=== PATIENT | female | born 1960 | race Caucasian/White ===

== ENCOUNTER 2019-08-22 19:14 | Inpatient (IN) | payer OTHER ==
[2019-08-22 20:44] VITALS: BMI 29.8
--- NOTE | 2019-08-22 21:51 | P.HP ---
Certification for Inpatient Patient admitted to: Observation With expected LOS: <2 Midnights Practitioner: I am a practitioner with admitting privileges, knowledge of patient current condition, hospital course, and medical plan of care. Services: Services provided to patient in accordance with Admission requirements found in Title 42 Section 412.3 of the Code of Federal Regulations Patient History Date of Service: 08/22/19 Reason for admission: Abdominal pain History of Present Illness: 59-year-old woman with a history of anxiety and depression, fibromyalgia, posttraumatic stress disorder was transferred from [facility] with a diagnosis of acute diverticulitis. Patient reports 4 days of abdominal pain. Pain described as colicky, no aggravating or relieving factors, associated with chills, no recorded fever. Patient denied any nausea vomiting or diarrhea. She reports frequent constipation. She rated her pain at 5/10 during my examination. Patient is admitted for further management. Allergies codeine Adverse Reaction (Verified 08/22/19 21:17) Nausea/Vomiting - Past Medical/Surgical History -: Fibromyalgia -: Anxiety -: Depression -: Hysterectomy -: Tonsillectomy - Family History Family History: Reviewed- Non-Contributory - Social History Smoking Status: Current every day smoker Alcohol use: No CD- Drugs: No Place of Residence: Home Review of Systems Other: Except as documented, all other systems reviewed and negative. Physical Examination - Vital Signs Temperature: 97.9 F Blood Pressure: 126/76 Pulse: 111 Respirations: 16 Pulse Ox (%): 98 - Physical Exam General: Alert, In no apparent distress, Oriented x3 HEENT: PERRLA, Mucous membr. moist/pink, Sclerae nonicteric Neck: Supple, JVD not distended Respiratory: Clear to auscultation bilaterally, Normal air movement Cardiovascular: No edema, Normal pulses, Regular rate/rhythm, Normal S1 S2 Capillary refill: <2 Seconds Gastrointestinal: Normal bowel sounds, Non-distended, No rebound, No guarding, Tenderness (Left lower quadrant) Musculoskeletal: No swelling, No erythema Integumentary: No rashes Neurological: Normal speech, Normal strength at 5/5 x4 extr Assessment and Plan - Problems (Diagnosis) (1) Acute diverticulitis Current Visit: Yes Status: Acute - Plan Admit to the medical floor. Start IV Cipro and Flagyl Monitor CBC Clear liquid diet. Consult general surgery. Collect, validate and reconcile home medications. - Advance Directives Does patient have a Living Will: No Does patient have a Durable POA for Healthcare: No
[2019-08-22] MEDS ORDERED: ONDANSETRON 4 MG/2 ML VIAL IV PRN (22:52)
[2019-08-22] MEDS: NA CHLORIDE 0.9% 1,000 ML IV SCH (23:50)
[2019-08-22] MEDS: FENTANYL CITR 100 MCG/2 ML IV PRN (23:50)
[2019-08-23] MEDS: METRONIDAZOLE 500mg IVPB 500 MG/100 ML BAG IV SCH ×3 (00:01→17:03)
[2019-08-23] MEDS: HEPARIN 5000 UNIT/ML 1 ML VIAL SQ SCH ×3 (00:01→17:02)
[2019-08-23] MEDS: FENTANYL CITR 100 MCG/2 ML IV PRN ×4 (04:13→21:52)
[2019-08-23 06:19] LABS: Absolute Lymphocytes (CBC) 1.6 K/uL (0.7-4.9); Basophils % 1.1 % (0-1.3); Hematocrit 36.4 % (36.0-45.0); MPV 9.4 fL (7.6-11.3); RBC Red Blood Cell Count 4.02 M/uL (3.86-4.86)
[2019-08-23 06:20] LABS: Protime INR 1.23
[2019-08-23 06:31] LABS: ALT/SGPT 28 U/L (12-78); AST/SGOT 17 U/L (15-37); Albumin 2.7 g/dL (3.4-5.0); Alkaline Phosphatase 103 U/L (45-117); BUN Blood Urea Nitrogen 14 mg/dL (7-18); Bicarbonate 27 mmol/L (21-32); Bilirubin Total 0.7 mg/dL (0.2-1.0); Glucose Level 74 mg/dL (74-106); Phosphorus 3.2 mg/dL (2.5-4.9); Potassium 3.8 mmol/L (3.5-5.1); Protein, Total 6.6 g/dL (6.4-8.2); Sodium Level 143 mmol/L (136-145)
[2019-08-23] MEDS: ACETAMINOPHEN 500 MG TAB PO PRN (07:05)
[2019-08-23] MEDS: NA CHLORIDE 0.9% 1,000 ML IV SCH ×3 (09:00→21:51)
[2019-08-23] MEDS ORDERED: POTASSIUM CL SA 10 MEQ TAB PO ONE (09:00)
[2019-08-23] MEDS: CIPROFLOXACIN 400mg IV 400 MG/200 ML BAG IV SCH ×2 (09:14→21:51)
--- NOTE | 2019-08-23 10:04 | PN ---
Date of Progress Note: 08/23/2019 History Of Present Illness: Patient seen and examined. Chart reviewed and case discussed with RN. Patient states that her pain is still present. Has been n.p.o. Medications: List reviewed. Physical Examination: Vital Signs: Temperature 96.3, heart rate 86, blood pressure 101/62, respirations 16, O2 95% on room air. General: Awake, alert, oriented x3, in some mild distress. Ill-appearing female, obese. CV: S1, S2. Regular rate and rhythm. Respiratory: Moving air well bilaterally. No wheezing or stridor. Gastrointestinal: Abdomen is soft. Mild tenderness to palpation in the left upper quadrant. Bowel sounds positive. Extremities: No clubbing, cyanosis, or edema. Neurologic: Nonfocal. Cranial nerves 2 through 12 intact grossly. Speech is normal. Laboratory Data: Sodium 143, potassium 3.8, chloride 111, CO2 of 27, BUN 14, creatinine 0.57, glucos e 74, calcium 8.2, phosphorus 3.2, magnesium 2. AST 17, ALT 28, albumin 2.7. INR 1.23. WBC 10.7, H and H 12.2 and 36.4, platelets 218, neutrophils 76%. Assessment: A 59-year-old female with: 1.Acute diverticulitis. We will continue with intravenous antibiotics, Cipro and Flagyl. Patient i s on clear liquids. Dr. Harper and GI, Dr. Pollack have been consulted. Patient will need outpatient colonoscopy once an inflammatory stage is resolved. 2.Fibromyalgia, stable. 3.Generalized anxiety disorder, stable. 4.Major depressive disorder, on selective serotonin reuptake inhibitor, stable. 5.Deep venous thrombosis prophylaxis. The patient is on heparin. Plan: 1.Continue IV fluids, IV antibiotics, and antiemetics. Slowly advance diet as tolerated. We will f ollow up with GI recommendations. Likely discharge in the next 24 to 48 hours depending on clinical response. SA/MODL Voice ID: [id number] Report ID: [id number]
--- NOTE | 2019-08-23 14:18 | CON ---
Date of Consultation: 08/22/2019 Reason For Consultation: Abdominal pain. History Of Present Illness: The patient is a 59-year-old female, who was transferred from [facility] with acute onset of left lower quadrant abdominal pain for about 4 days. Pain has not changed in its ginna lity and nature. No nausea or vomiting. No diarrhea. She does have constipation. No blood in her stool now, but she has a history of bright red blood in the recent past. She has not had a colonosco py in 20 years. No sore throat, runny nose, cough, headaches, or dizziness. No dysuria or hematuria. No chest pain. No fever or chills. Review of Systems: Otherwise unremarkable. Past Medical History: Significant for fibromyalgia, anxiety, depression. Past Surgical History: Hysterectomy and tonsillectomy. Allergies: INCLUDE CODEINE. SHE DOES SMOKE. SHE DENIES DRINKING. Family History: Noncontributory. Physical Examination: Vital Signs: Currently are within normal limits and she is afebrile. General: She is awake, alert, and oriented x3. Head and Neck: Cranial nerves 2 through 12 are grossly within normal limits. No neck masses. No JV D. Throat clear. Neck is supple. Chest: Clear. Heart: S1 and S2. Abdomen: Soft, nondistended. Positive bowel sounds. Positive left lower quadrant tenderness. No r ebound, rigidity, or guarding. Extremities: Adequately perfused. Nontender. Neuro: Nonfocal. Laboratory Data: White count is 10.7 this morning with a left shift. INR is 1.23. Chemistry reviewe d. Albumin is 2.7. CT of the abdomen and pelvis done at [facility] prior to transfer over here, showed [place] sigmoid diverticulitis, uncomplicated. Assessment: Acute sigmoid diverticulitis. Recommendation: IV antibiotics. We will start patient on clear liquids. Dietary consultation for d ietary modification. She will need to be discharged home on 2 weeks of oral antibiotics followed by evaluation by GI service for a colonoscopy in 4-6 weeks after which she would need determination whet her she needs a resection at this time or not. We will follow this patient while in the hospital. THANH/ZACH Voice ID: [id number] Report ID: [id number]
[2019-08-23 20:33] LABS: Urine Appearance CLEAR; Urine Bilirubin NEGATIVE (NEG); Urine Blood NEGATIVE (NEG); Urine Color YELLOW; Urine Glucose NEGATIVE (NEG); Urine Protein NEGATIVE (NEG); Urine Specific Gravity <=1.005 (1.005-1.030); Urine pH 5.5 (5.0-7.0)
[2019-08-23 20:34] LABS: Urine Microscopic Reflex NO UMIC
[2019-08-24] MEDS: METRONIDAZOLE 500mg IVPB 500 MG/100 ML BAG IV SCH ×3 (01:04→16:00)
[2019-08-24] MEDS: HEPARIN 5000 UNIT/ML 1 ML VIAL SQ SCH ×3 (01:05→16:23)
[2019-08-24] MEDS: FENTANYL CITR 100 MCG/2 ML IV PRN ×2 (02:31→07:05)
[2019-08-24] MEDS: NA CHLORIDE 0.9% 1,000 ML IV SCH ×2 (05:00→14:27)
[2019-08-24 06:33] LABS: BUN Blood Urea Nitrogen 8 mg/dL (7-18); Bicarbonate 26 mmol/L (21-32); Glucose Level 92 mg/dL (74-106); Potassium 3.8 mmol/L (3.5-5.1); Sodium Level 144 mmol/L (136-145)
[2019-08-24] MEDS: CIPROFLOXACIN 400mg IV 400 MG/200 ML BAG IV SCH ×2 (07:57→20:29)
[2019-08-24] MEDS ORDERED: POTASSIUM CL SA 10 MEQ TAB PO ONE (08:00)
[2019-08-24] MEDS ORDERED: LORATADINE 10 MG TAB PO PRN (09:09)
--- NOTE | 2019-08-24 09:38 | PN ---
Date of Progress Note: 08/24/2019 Subjective: Patient is awake, alert, still complaining a little bit of pain in the left lower quadra nt. She has tolerated a full liquid diet. There is no nausea or vomiting and no diarrhea. She does have some constipation. No blood in her stool today. Objective: Vital Signs: Stable. She is currently afebrile. Abdomen: Soft, nondistended. Positive bowel sounds. Minimal tenderness in the left lower quadrant. No rigidity or guarding. No peritonitis. Her white count yesterday was normal with a slight left shift. Assessment: Acute sigmoid diverticulitis. Recommendations: We will advance her diet to a GI soft low-fiber diet and await dietary consultation and she could probably be discharged home tomorrow on oral antibiotics for 2 weeks. Follow up with GI service in about a month for a colonoscopy. THANH/ZACH Voice ID: [id number] Report ID: [id number]
--- NOTE | 2019-08-24 13:10 | PN ---
Date of Progress Note: 08/24/2019 Subjective: Patient seen and examined. Chart reviewed and case discussed with RN and Dr. Harper. Ray renteria is still having significant amount of pain in the left upper quadrant, requiring fentanyl. Medications: List reviewed. Physical Examination: Vital Signs: Temperature 97.5, heart rate 80, blood pressure 140/81, respirations 16, O2 of 97% on r oom air. General: Awake, alert, oriented x3, ill-appearing female. CVS: S1, S2. Regular rate and rhythm. Peripheral pulses present. Respiratory: Moving air well bilaterally. No wheezing or stridor. Gastrointestinal: Abdomen is soft. Tenderness to palpation in the left upper quadrant. No rebound or rigidity. Positive bowel sounds. Extremities: No clubbing, cyanosis, or edema. Neurologic: Nonfocal. Laboratory Data: Sodium 144, potassium 3.8, chloride 111, CO2 of 26, BUN 8, creatinine 0.58, glucose 92, calcium 8.2. Assessment: A 59-year-old female with: 1.Acute diverticulitis. Continue IV antibiotics, Cipro and Flagyl. Patient is tolerating clear liq uids. Appreciate Dr. Harper's input. Patient will need a colonoscopy in the next 4-[address] Sarah leonard. No surgical intervention at this time. 2.Fibromyalgia. Resume home medications. 3.Anxiety disorder. Continue amitriptyline. 4.Major depressive disorder. Continue SSRI. 5.Deep venous thrombosis prophylaxis. Heparin. Plan: Continue IV antiemetics and IV antibiotics. Patient is still requiring fentanyl for pain cont rol. She is not able to be discharged home at this time due to uncontrolled pain. We will repeat CBC and procalcitonin. SA/MODL Voice ID: [id number] Report ID: [id number]
[2019-08-24] MEDS: HYDROCODONE/APAP 7.5/325 MG TAB PO PRN ×2 (14:26→20:27)
[2019-08-24] MEDS ORDERED: FENTANYL CITR 100 MCG/2 ML IV PRN (17:50)
[2019-08-24] MEDS ORDERED: PRAZOSIN HCL 1 MG CAP PO SCH (21:00)
[2019-08-24] MEDS ORDERED: PRAZOSIN HCL 4 MG PO SCH (21:00)
[2019-08-24] MEDS ORDERED: AMITRIPTYLINE 10 MG TAB PO SCH ×2 (21:00)
[2019-08-24 22:55] VITALS: O2SAT 95
[2019-08-25] MEDS: NA CHLORIDE 0.9% 1,000 ML IV SCH ×2 (01:20→11:00)
[2019-08-25] MEDS: METRONIDAZOLE 500mg IVPB 500 MG/100 ML BAG IV SCH ×2 (01:21→07:53)
[2019-08-25] MEDS: HEPARIN 5000 UNIT/ML 1 ML VIAL SQ SCH ×2 (01:21→07:55)
[2019-08-25] MEDS: HYDROCODONE/APAP 7.5/325 MG TAB PO PRN (01:26)
[2019-08-25] MEDS ORDERED: PANTOPRAZOLE 40MG TABLET PO SCH (06:30)
[2019-08-25 06:34] LABS: Absolute Lymphocytes (CBC) 1.7 K/uL (0.7-4.9); Basophils % 0.8 % (0-1.3); Hematocrit 35.7 % (36.0-45.0); MPV 9.1 fL (7.6-11.3); RBC Red Blood Cell Count 3.95 M/uL (3.86-4.86)
[2019-08-25 06:41] LABS: BUN Blood Urea Nitrogen 10 mg/dL (7-18); Bicarbonate 27 mmol/L (21-32); Glucose Level 96 mg/dL (74-106); Potassium 3.8 mmol/L (3.5-5.1); Sodium Level 144 mmol/L (136-145)
[2019-08-25] MEDS ORDERED: POTASSIUM CL SA 10 MEQ TAB PO ONE (07:03)
[2019-08-25] MEDS: CIPROFLOXACIN 400mg IV 400 MG/200 ML BAG IV SCH (07:53)
[2019-08-25] MEDS: ACETAMINOPHEN 500 MG TAB PO PRN (07:53)
[2019-08-25] MEDS ORDERED: ARIPiprazole 5 MG TAB PO SCH (09:00)
[2019-08-25] MEDS ORDERED: HOME MED 1 EA UNK (Aripiprazole [Abilify] 10 MG) PO SCH (09:00)
[2019-08-25] MEDS ORDERED: HOME MED 1 EA UNK (Omeprazole [Prilosec] 40 MG) PO SCH (09:00)
[2019-08-25] MEDS ORDERED: DULOXETINE 30 MG CAP PO SCH (09:00)
[2019-08-25] MEDS ORDERED: HOME MED 1 EA UNK (Duloxetine Hcl [Duloxetine Hcl] 60 MG) PO SCH (09:00)
[2019-08-25 14:39] VITALS: BP 140/95; TEMP 97.5
--- NOTE | 2019-08-26 03:56 | DS ---
Date of Discharge: 08/25/2019 Consultants: Dr. Harper with General Surgery, Dr. Pollack with GI. Admitting Diagnoses: 1.Acute diverticulitis. 2.Anxiety disorder. 3.Fibromyalgia. 4.Major depressive disorder. Discharge Diagnoses: 1.Acute diverticulitis. 2.Fibromyalgia, stable. 3.Generalized anxiety disorder, stable. 4.Major depressive disorder, stable. Hospital Course: Patient is a 59-year-old woman who comes in to the [facility] with abdo donovan pain. She was diagnosed with acute diverticulitis on CT scan. She was referred for admission to [facility]. Patient was started on IV fluids, kept n.p.o. and started on IV antibi otics. General Surgery and GI consultations were obtained. Patient did well. She did not have any signs of sepsis. Her procalcitonin was negative. She did have significant amount of pain requiring IV pain medications. This improved slowly. Her diet was advanced. She denies any surgical interven tion. She will need a colonoscopy going forward in the next 6-8 weeks once the acute inflammatory st ate has resolved. Patient will need to follow up with GI. She was given information on diverticulit is and she was counseled regarding her diet and to avoid constipation and to have regular bowel regim en. She will finish up course of antibiotics for her diverticulitis. Followup: Follow up with primary care physician in 2-3 days. Follow up with GI, Dr. Pollack in 2 wee ks. Follow up with surgeon, Dr. Harper in 2 weeks. Return to ER for worsening condition. Diet: [place]. Activity: As tolerated. Medications: As per medication reconciliation list. Disposition: Patient was discharged home in a stable condition. Physical Examination: General: Awake, alert, oriented x3. No acute distress. CV: S1, S2. Respiratory: Moving air well bilaterally. Abdomen: Soft, nontender, nondistended. Positive bowel sounds. Extremities: No clubbing, cyanosis, edema. Total time spent discharging patient was 32 minutes. SA/MODL Voice ID: [id number] Report ID: [id number]
== END 2019-08-25 12:36 | disposition home or self-care (01) | DRG 392 ==
LOC: INTOOBSV 20:25 → 2ND 20:25 → OBSVTOIN 08-24 16:49
PROVIDERS: ADMIT Family Medicine; ATTEND Family Medicine
DX: K57.32 Diverticulitis of large intestine without perforation or abscess without bleeding (principal); F17.200 Nicotine dependence, unspecified, uncomplicated; M79.7 Fibromyalgia; F41.1 Generalized anxiety disorder; F32.9 Major depressive disorder, single episode, unspecified; Z88.5 Allergy status to narcotic agent; Z90.49 Acquired absence of other specified parts of digestive tract
CPT/HCPCS: 36415; 80048; 80053; 81003; 83735; 84100; 84145; 85025; 85610; J0744; J1644; J3010; J7030

== ENCOUNTER 2025-01-25 14:50 | Emergency (ER) | payer OTHER ==
[2025-01-25 16:09] LABS: Absolute Lymphocytes (CBC) 1.9 K/uL (0.7-4.9); Hematocrit 43.1 % (36.0-45.0); Hemoglobin 14.8 g/dL (12.0-15.0); MCH 29.7 pg (27.0-35.0); MCHC 34.3 g/dL (32.0-36.0); MCV 86.6 fL (80-100); MPV 7.7 fL (7.6-11.3); Nucleated RBC Absolute Count 0.0 (0-0); Nucleated Red Blood Cells % 0.0 % (0-0); RBC Red Blood Cell Count 4.98 M/uL (3.86-4.86); White Blood Count 8.20 thou/uL (4.3-10.9)
[2025-01-25] MEDS ORDERED: ONDANSETRON 4 MG/2 ML VIAL ONE (16:11)
[2025-01-25] MEDS ORDERED: MORPHINE 4 MG/ML SYR ONE (16:12)
[2025-01-25 16:20] LABS: PT Prothrombin Time 11.2 SECONDS (10-13.0); Protime INR 0.99
[2025-01-25 16:30] LABS: ALT/SGPT 39 U/L (13-56); AST/SGOT 20 U/L (15-37); Albumin 3.6 g/dL (3.4-5.0); Albumin/Globulin Ratio 0.9 (1.1-1.8); Alkaline Phosphatase 81 U/L (45-117); Anion Gap 10.2 mEq/L (5.0-15.0); BUN Blood Urea Nitrogen 17 mg/dL (7-18); Globulin 4.0 g/dL (2.3-3.5); Glucose Level 121 mg/dL (74-106); Magnesium 2.1 mg/dL (1.6-2.4); NT PRO-BNP 10 pg/mL (<125); Potassium 4.2 mEq/L (3.5-5.1); Troponin High Sensitivity 3.3 pg/mL (<58.9)
[2025-01-25 16:42] LABS: Bilirubin Indirect, Calculated 0.4 mg/dL (0.2-0.8)
--- NOTE | 2025-01-25 17:01 | RAD REPORT ---
EXAM: Chest Single View HISTORY: 64 years Female right shoulder pain COMPARISON: No prior exams FINDINGS: LUNGS/PLEURA: The lungs are clear. No pleural effusions or pneumothorax. No pulmonary edema. CARDIAC/MEDIASTINUM: The cardiac silhouette is within normal limits. UPPER ABDOMEN: No significant abnormality. BONES: No acute abnormality. Left proximal humerus plate and screw fixation. LINES/TUBES/OTHER: N/A IMPRESSION: No evidence of acute cardiopulmonary disease.
--- NOTE | 2025-01-25 17:01 | RAD REPORT ---
EXAMINATION: Shoulder Right 2+ Views CLINICAL INDICATION: Female, 64 years old. PAIN RIGHT COMPARISON: No prior exam. FINDINGS: No acute fracture. No malalignment/dislocation. No significant focal degenerative change. Other: n/a IMPRESSION: No acute osseous abnormality.
--- NOTE | 2025-01-25 17:50 | RAD REPORT ---
EXAMINATION: CTA CHEST PE CLINICAL INDICATION: Female, 64 years old. right shoulder pain;Chest pain TECHNIQUE: This examination was performed according to an angiographic protocol with 3D post-processi ng. This involves 3D reconstructions, MIPs, volume rendered images and/or shaded surface rendering. One or more of the following dose reduction techniques were used: Automated exposure control, adjustm ent of the mA and/or kV according to patient size, and/or iterative reconstruction. Unless otherwise specified, incidental findings do not require dedicated imaging follow-up. [id number]. COMPARISON: No priors. FINDINGS: LOWER NECK: Visualized thyroid gland and soft tissues are normal. MEDIASTINUM AND LYMPH NODES: No mediastinal mass or fluid collection. Normal size mediastinal, hilar, and axillary lymph nodes. THORACIC AORTA: No thoracic aortic aneurysm. PULMONARY ARTERIES: Caliber is within normal limits. HEART: Normal heart size. No coronary calcifications.Trace pericardial effusion. LUNGS AND AIRWAYS: No evidence of airspace or interstitial process. No suspicious and/or stable pulmo nary nodules. PLEURA: No pleural effusions. No pneumothorax. OSSEOUS STRUCTURES AND CHEST WALL: No fracture or suspicious osseous lesions. UPPER ABDOMEN: No acute abnormalities. Cholecystectomy Left proximal humerus ORIF. IMPRESSION: Negative for pulmonary embolism. No acute findings in the chest.
[2025-01-25] MEDS ORDERED: METHOCARBAMOL 1,000 MG/10 ML VIAL ONE (17:55)
[2025-01-25] MEDS ORDERED: KETOROLAC 30 MG/ML INJ ONE (17:55)
[2025-01-25] MEDS ORDERED: NA CHLORIDE 0.9% 500 ML ONE (17:56)
[2025-01-25] MEDS ORDERED: NA CHLORIDE 0.9% 100 ML ONE (17:56)
--- NOTE | 2025-01-25 18:31 | ER ---
Nurse's Notes [facility] Name: Nora Rubio Age: 64 yrs Sex: Female : 1960 Arrival Date: 01/25/2025 Time: 14:50 Bed 2 Private MD: Diagnosis: Pain in right shoulder;Dorsalgia, unspecified Presentation: 01/25 15:35 Chief complaint: Patient states: RIGHT SHOULDER PAIN WHILE TRYING TO GET UP OUT OF BED db X 1 WEEK AGO ON SUNDAY. DENIES RECENT INJURY. Coronavirus screen: Client denies travel out of the [place] in the last 14 days. At this time, the client does not indicate any symptoms associated with coronavirus-19. Ebola Screen: Patient negative for fever greater than or equal to 101.5 degrees Fahrenheit, and additional compatible Ebola Virus Disease symptoms Patient denies exposure to infectious person. Patient denies travel to an Ebola-affected area in the 21 days before illness onset. No symptoms or risks identified at this time. Initial Sepsis Screen: Does the patient meet any 2 criteria? No. Patient's initial sepsis screen is negative. Does the patient have a suspected source of infection? No. Patient's initial sepsis screen is negative. Risk Assessment: Do you want to hurt yourself or someone else? Patient reports no desire to harm self or others. Onset of symptoms was January 25, 2025. 15:35 Method Of Arrival: Ambulatory db 15:35 Acuity: ELISA 3 db Triage Assessment: 15:38 General: Appears in no apparent distress. uncomfortable, Behavior is calm, cooperative. db Pain: Complains of pain in anterior aspect of right shoulder and posterior aspect of right shoulder. Neuro: Level of Consciousness is awake, alert, obeys commands, Oriented to person, place, time, situation. Musculoskeletal: Circulation, motion, and sensation intact. Capillary refill < 3 seconds, Range of motion: limited in right shoulder. Historical: - Allergies: 15:37 Codeine; db - PMHx: 15:37 Fibromyalgia; Diabetes mellitus; db - Immunization history:: Adult Immunizations unknown. - Infectious Disease History:: Denies. - Social history:: Smoking status: Patient reports the use of cigarette tobacco products, smokes one pack cigarettes per day. Screenin:00 [facility] ED Fall Risk Assessment (Adult) History of falling in the last 3 months, nh2 including since admission No falls in past 3 months (0 pts) Confusion or Disorientation No (0 pts) Intoxicated or Sedated No (0 pts) Impaired Gait No (0 pts) Mobility Assist Device Used No (0 pt) Altered Elimination No (0 pt) Score/Fall Risk Level 0 - 2 = Low Risk Oriented to surroundings, Maintained a safe environment, Educated pt \T\ family on fall prevention, incl call for assistance when getting out of bed, Assessed \T\ reinforced patient's understanding of fall precautions. Abuse screen: Denies threats or abuse. Denies injuries from another. Nutritional screening: No deficits noted. Tuberculosis screening: No symptoms or risk factors identified. Assessment: 15:55 General: Appears uncomfortable, Behavior is cooperative, appropriate for age, Denies nh2 fever, chills. Pain: Complains of pain in right shoulder Pain does not radiate. Pain currently is 8 out of 10 on a pain scale. Quality of pain is described as aching, Pain began 9 days ago Is intermittent. Neuro: Level of Consciousness is awake, alert, obeys commands, Oriented to person, place, time, situation, Denies weakness headache. Cardiovascular: Denies chest pain, Patient's skin is warm and dry. Rhythm is sinus tachycardia. Respiratory: Airway is patent Trachea midline Respiratory effort is even, unlabored, Respiratory pattern is regular, symmetrical, Denies cough, shortness of breath. GI: Abdomen is round non-distended, Bowel sounds present X 4 quads. : No signs and/or symptoms were reported regarding the genitourinary system. EENT: No signs and/or symptoms were reported regarding the EENT system. Derm: Skin is pink, warm \T\ dry. Musculoskeletal: Circulation, motion, and sensation intact. Range of motion: intact in all extremities. 16:49 Reassessment: Patient and/or family updated on plan of care and expected duration. Pain nh2 level reassessed. Patient is alert, oriented x 3, equal unlabored respirations, skin warm/dry/pink. Patient states feeling better. 17:45 Reassessment: Patient and/or family updated on plan of care and expected duration. Pain nh2 level reassessed. Patient is alert, oriented x 3, equal unlabored respirations, skin warm/dry/pink. 18:45 Reassessment: Patient and/or family updated on plan of care and expected duration. Pain nh2 level reassessed. Patient is alert, oriented x 3, equal unlabored respirations, skin warm/dry/pink. Patient states feeling better. Vital Signs: 15:35 BP 131 / 110; Pulse 128; Resp 22; Temp 98; Pulse Ox 95% ; Pain 8/10; db 15:45 BP 156 / 110; Pulse 115; Resp 18; Pulse Ox 99% on R/A; nh2 16:45 BP 140 / 102; Pulse 112; Resp 19; Pulse Ox 99% on R/A; nh2 17:45 BP 139 / 102; Pulse 104; Resp 17; Pulse Ox 98% ; nh2 18:16 BP 123 / 94; Pulse 111; Resp 18; Pulse Ox 100% on R/A; nh2 19:10 BP 130 / 88; Pulse 101; Resp 18; Temp 98; Pulse Ox 100% on R/A; nh2 15:35 Pain Scale: Adult db ED Course: 14:55 Patient arrived in ED. sj2 14:56 Fav[facility] Lanier [facility]-C [facility]. cp 14:56 Favio Denny MD is Attending Physician. cp 15:37 Triage completed. db 15:38 Arm band placed on Patient placed in waiting room. db 15:42 Hunter Soto Jr, RN is Primary Nurse. nh2 16:00 Patient has correct armband on for positive identification. Bed in low position. Call nh2 light in reach. Side rails up X 1. Provided Education on: using call light for assistance. 16:00 Inserted saline lock: 20 gauge in right antecubital area, using aseptic technique. nh2 Blood collected. Flushed with 10 mL NS. 16:30 EKG done, by ED staff, reviewed by Favio Lanier PA-C. nh2 16:45 XRAY Chest (1 view) In Process Unspecified. EDMS 16:45 XRAY Shoulder RIGHT 2 view In Process Unspecified. EDMS 17:35 CT Chest For PE Angio In Process Unspecified. EDMS 18:28 Francisco Graves MD is Referral Physician. cp 18:29 Referral Physician role handed off by Francisco Graves MD cp 18:29 Placido Calhoun MD is Referral Physician. cp 19:16 IV discontinued, intact, bleeding controlled, No redness/swelling at site. Pressure nh2 dressing applied. 19:16 Sling applied to right arm. nh2 19:17 No provider procedures requiring assistance completed. nh2 Administered Medications: 16:15 Drug: morphine IVP or IV 4 mg IVP once over 4 mins Route: IVP; Infused Over: 4 mins; nh2 Site: right antecubital; 16:53 Follow up: Response: No adverse reaction; Pain is decreased nh2 16:20 Drug: Ondansetron IVP 4 mg IVP once; over 2 minutes Route: IVP; Site: right antecubital;nh2 16:53 Follow up: Response: No adverse reaction; Nausea is decreased nh2 18:04 Drug: Ketorolac IVP 15 mg IVP once Route: IVP; Site: right antecubital; nh2 18:45 Follow up: Response: No adverse reaction; Pain is decreased nh2 18:04 Drug: NS 0.9% IV 500 ml 500 ml IV at 1 bolus once; to be given as a bolus over 30 nh2 minutes Volume: 500 ml; Route: IV; Rate: 1 bolus; Site: right antecubital; 19:18 Follow up: IV Status: Completed infusion; IV Intake: 500ml nh2 18:04 Drug: Methocarbamol IVPB 500 mg IVPB once over 1 hrs; (mix in NS 100 mL) Route: IVPB; nh2 Infused Over: 1 hrs; Site: right antecubital; 19:17 Follow up: Response: No adverse reaction; IV Status: Completed infusion; IV Intake: nh2 100ml 18:47 Drug: traMADol PO 50 mg PO once Route: PO; nh2 19:18 Follow up: Response: No adverse reaction; Pain is decreased nh2 18:47 Drug: Acetaminophen PO 650 mg PO once Route: PO; nh2 19:17 Follow up: Response: No adverse reaction; Pain is decreased nh2 Medication: 18:10 VIS not applicable for this client. nh2 Intake: 19:17 IV: 100ml; Total: 100ml. nh2 19:18 IV: 500ml; Total: 600ml. nh2 Outcome: 18:30 Discharge ordered by . cp 19:16 Discharged to home via wheelchair, nh2 19:16 Condition: stable 19:16 Discharge instructions given to patient, significant other, Instructed on discharge instructions, follow up and referral plans. no drinking with medication, medication usage, Demonstrated understanding of instructions, follow-up care, medications, Prescriptions given X 3, 19:17 Patient left the ED. nh2 Signatures: Dispatcher [employer] EDMS Favio Lanier PA-C PA-C cp Benton, Danielle RN RN db Hunter Soto Jr, RN RN nh2 [place] 2 Corrections: (The following items were deleted from the chart) 15:37 15:35 BP 131 / 110; Pulse 127bpm; Resp 22bpm; Pulse Ox 95%; Temp 98F; Pain 8/10, Adult; db db
--- NOTE | 2025-01-25 18:31 | EDPHYS ---
Physician Documentation [facility] Name: Nora Rubio Age: 64 yrs Sex: Female : 1960 Arrival Date: 01/25/2025 Time: 14:50 Bed 2 Private MD: ED Physician Favio Denny HPI: 01/25 15:45 This 64 yrs old Female presents to ER via Ambulatory with complaints of Shoulder cp Injury, Shoulder Pain. 15:45 The patient or guardian complains of pain, that is acute. right shoulder. Context: cp started after getting up out of bed 1 week ago. Onset: The symptoms/episode began/occurred 1 week(s) ago. 15:45 Associated signs and symptoms: Pertinent positives: right upper back pain, Pertinent cp negatives: chest pain, diaphoresis, neck pain, Numbness in right hand and right arm and right shoulder. Severity of symptoms: in the emergency department the symptoms are unchanged, despite home interventions. Treatment prior to arrival includes: no previous treatment. Patient reports history of rotator cuff injury. Historical: - Allergies: 15:37 Codeine; db - PMHx: 15:37 Fibromyalgia; Diabetes mellitus; db - Immunization history:: Adult Immunizations unknown. - Infectious Disease History:: Denies. - Social history:: Smoking status: Patient reports the use of cigarette tobacco products, smokes one pack cigarettes per day. ROS: 15:50 Constitutional: Negative for body aches, chills, fever, poor PO intake, cp 15:50 Eyes: Negative for injury, pain, redness, and discharge, cp 15:50 Cardiovascular: Negative for chest pain, edema, palpitations, 15:50 Respiratory: Negative for cough, shortness of breath, wheezing, 15:50 Abdomen/GI: Negative for abdominal pain, vomiting, diarrhea, constipation, 15:50 MS/extremity: Positive for pain, of the right shoulder, Negative for injury or acute deformity, 15:50 Neuro: Negative for altered mental status, headache, 15:50 All other systems are negative, Exam: 15:50 Head/Face: Normocephalic, atraumatic. cp 15:50 Constitutional: The patient appears in no acute distress, alert, awake, non-diaphoretic, non-toxic, well developed, well nourished, uncomfortable, 15:50 Eyes: Periorbital structures: appear normal, Conjunctiva: normal, no exudate, no injection, Sclera: no appreciated abnormality, Lids and lashes: appear normal, bilaterally, 15:50 ENT: External ear(s): are unremarkable, Nose: is normal, Mouth: Lips: moist, Oral mucosa: moist, Posterior pharynx: Airway: no evidence of obstruction, patent, 15:50 Neck: C-spine: vertebral tenderness, is not appreciated, crepitus, is not appreciated, 15:50 Chest/axilla: Inspection: normal, Palpation: crepitus, is not appreciated, tenderness, is not appreciated, 15:50 Cardiovascular: Rate: tachycardic, Rhythm: regular, Edema: is not appreciated, JVD: is not appreciated, 15:50 Respiratory: the patient does not display signs of respiratory distress, Respirations: shallow respirations, that is mild, Breath sounds: are clear throughout, no decreased breath sounds, no stridor, no wheezing, 15:50 Abdomen/GI: Inspection: abdomen appears normal, Palpation: abdomen is soft and non-tender, in all quadrants, 15:50 Back: pain, that is severe, of the right trapezius, right scapular area and right subscapular area, vertebral tenderness, is not appreciated, 15:50 Musculoskeletal/extremity: Extremities: noted in the right shoulder: pain, tenderness, lateral and posterior shoulder, ROM: limited passive range of motion due to pain, in the right shoulder, Pulses: noted to be 2+ in the right radial artery, the right hand and right arm Sensation intact. 15:50 Neuro: Orientation: to person, place \T\ time. Mentation: is normal, 15:55 ECG was reviewed by the Attending Physician. cp Vital Signs: 15:35 BP 131 / 110; Pulse 128; Resp 22; Temp 98; Pulse Ox 95% ; Pain 8/10; db 15:45 BP 156 / 110; Pulse 115; Resp 18; Pulse Ox 99% on R/A; nh2 16:45 BP 140 / 102; Pulse 112; Resp 19; Pulse Ox 99% on R/A; nh2 17:45 BP 139 / 102; Pulse 104; Resp 17; Pulse Ox 98% ; nh2 18:16 BP 123 / 94; Pulse 111; Resp 18; Pulse Ox 100% on R/A; nh2 19:10 BP 130 / 88; Pulse 101; Resp 18; Temp 98; Pulse Ox 100% on R/A; nh2 15:35 Pain Scale: Adult db MDM: 15:36 Medical Screening Exam initiated cp 18:30 Data reviewed: vital signs, nurses notes, lab test result(s), EKG, radiologic studies, cp CT scan, plain films, and as a result, I will discharge patient. 18:30 Differential diagnosis: tendonitis, dislocation, fracture. I considered the following cp discharge prescriptions or medication management in the emergency department Medications were administered in the Emergency Department. See MAR. Independent interpretation of the following test(s) in the Emergency Department EKG: See my EKG interpretation above. Care significantly affected by the following chronic conditions: Diabetes. Counseling: I had a detailed discussion with the patient and/or guardian regarding the historical points, exam findings, and any diagnostic results supporting the discharge/admit diagnosis, lab results, radiology results, the need for outpatient follow up, a orthopedic surgeon, to return to the emergency department if symptoms worsen or persist or if there are any questions or concerns that arise at home. Response to treatment: the patient's symptoms have mildly improved after treatment, and as a result, I will discharge patient. 01/25 15:39 Order name: Basic Metabolic Panel; Complete Time: 17:05 cp 01/25 17:06 Interpretation: Normal except: GLUC 121; CRE 1.03; GFR 60. cp 01/25 15:39 Order name: CBC with Diff; Complete Time: 17:05 cp 01/25 17:06 Interpretation: Normal except: RBC 4.98. cp 01/25 15:39 Order name: LFT's; Complete Time: 17:05 cp 01/25 15:39 Order name: Magnesium; Complete Time: 17:05 cp 01/25 15:39 Order name: NT PRO-BNP; Complete Time: 17:05 cp 01/25 15:39 Order name: PT-INR; Complete Time: 17:05 cp 01/25 15:39 Order name: Troponin HS; Complete Time: 17:05 cp 01/25 15:39 Order name: XRAY Chest (1 view); Complete Time: 17:05 cp 01/25 15:39 Order name: XRAY Shoulder RIGHT 2 view; Complete Time: 17:05 cp 01/25 17:09 Order name: CT Chest For PE Angio; Complete Time: 18:21 cp 10 15:39 Order name: Cardiac monitoring; Complete Time: 15:52 cp 01/25 15:39 Order name: EKG - Nurse/Tech; Complete Time: 15:52 cp 01/25 15:39 Order name: IV Saline Lock; Complete Time: 15:52 cp 01/25 15:39 Order name: Labs collected and sent; Complete Time: 15:52 cp 01/25 15:39 Order name: O2 Per Protocol; Complete Time: 15:52 cp 01/25 15:39 Order name: O2 Sat Monitoring; Complete Time: 15:52 cp 01/25 18:28 Order name: Sling; Complete Time: 19:15 cp EC:55 Rate is 120 beats/min. Rhythm is regular. [place] interval is normal. QRS interval is cp normal. QT interval is normal. T waves are Inverted in lead aVR. Interpreted by me. Reviewed by me. Administered Medications: 16:15 Drug: morphine IVP or IV 4 mg IVP once over 4 mins Route: IVP; Infused Over: 4 mins; nh2 Site: right antecubital; 16:53 Follow up: Response: No adverse reaction; Pain is decreased nh2 16:20 Drug: Ondansetron IVP 4 mg IVP once; over 2 minutes Route: IVP; Site: right antecubital;nh2 16:53 Follow up: Response: No adverse reaction; Nausea is decreased nh2 18:04 Drug: Ketorolac IVP 15 mg IVP once Route: IVP; Site: right antecubital; nh2 18:45 Follow up: Response: No adverse reaction; Pain is decreased nh2 18:04 Drug: NS 0.9% IV 500 ml 500 ml IV at 1 bolus once; to be given as a bolus over 30 nh2 minutes Volume: 500 ml; Route: IV; Rate: 1 bolus; Site: right antecubital; 19:18 Follow up: IV Status: Completed infusion; IV Intake: 500ml nh2 18:04 Drug: Methocarbamol IVPB 500 mg IVPB once over 1 hrs; (mix in NS 100 mL) Route: IVPB; nh2 Infused Over: 1 hrs; Site: right antecubital; 19:17 Follow up: Response: No adverse reaction; IV Status: Completed infusion; IV Intake: nh2 100ml 18:47 Drug: traMADol PO 50 mg PO once Route: PO; nh2 19:18 Follow up: Response: No adverse reaction; Pain is decreased nh2 18:47 Drug: Acetaminophen PO 650 mg PO once Route: PO; nh2 19:17 Follow up: Response: No adverse reaction; Pain is decreased nh2 Disposition Summary: 01/25/25 18:30 Discharge Ordered Notes: Location: Home cp Problem: new cp Symptoms: have improved cp Condition: Stable cp Diagnosis - Pain in right shoulder cp - Dorsalgia, unspecified cp Followup: cp - With: Francisco Graves MD - When: 2 - 3 days - Reason: right shoulder pain Followup: cp - With: Placido Calhoun MD - When: 2 - 3 days - Reason: right shoulder pain Discharge Instructions: - Discharge Summary Sheet cp - Shoulder Pain cp - Shoulder Range of Motion Exercises cp Forms: - Medication Reconciliation Form cp - Antibiotic Education cp - Prescription Opioid Use cp - Patient Portal Instructions cp - Leadership Thank You Letter cp Prescriptions: - diclofenac sodium 1 % Topical gel - apply 1 gram TOPICAL route 3-4 times daily apply to area of right shoulder for cp pain; 45 gram tube; Refills: 0, Product Selection Permitted - Tramadol 50 mg Oral Tablet - take 1 tablet ORAL route every 8 hours as needed; 12 tablet; Refills: 0, cp Product Selection Permitted - methocarbamol 500 mg Oral tablet - take 1 tablet ORAL route every 8 hours; 30 tablet; Refills: 0, Product cp Selection Permitted Signatures: Dispatcher [employer] EDMS Favio Lanier PA-C PA-C cp Benton, Danielle, RN RN db Hunter Soto Jr, RN RN nh2 Corrections: (The following items were deleted from the chart) 15:40 15:40 BASIC METABOLIC PANEL+C.LAB.BRZ ordered. EDMS EDMS 15:40 15:40 CBC+H.LAB.BRZ ordered. EDMS EDMS 15:40 15:40 HEPATIC FUNCTION+C.LAB.BRZ ordered. EDMS EDMS 15:40 15:40 MAGNESIUM+C.LAB.BRZ ordered. EDMS EDMS 15:40 15:40 PROBNP+C.LAB.BRZ ordered. EDMS EDMS 15:40 15:40 PROTIME (+INR)+COAG.LAB.BRZ ordered. EDMS EDMS 15:40 15:40 Troponin High Sensitivity+C.LAB.BRZ ordered. EDMS EDMS 15:40 15:40 Chest Single View+RAD.RAD.BRZ ordered. EDMS EDMS 15:40 15:40 Shoulder Right 2 View+RAD.RAD.BRZ ordered. EDMS EDMS 17:09 17:09 Chest For PE Angio+CT.RAD.BRZ ordered. EDMS EDMS
[2025-01-25] MEDS ORDERED: TRAMADOL HCL 50 MG TAB ONE (18:43)
[2025-01-25] MEDS ORDERED: ACETAMINOPHEN 325 MG TABLET ONE (18:43)
[2025-01-25 20:22] VITALS: TEMP 98
[2025-01-25 20:29] VITALS: O2SAT 100
[2025-01-25 20:31] VITALS: BP 130/88
== END 2025-01-25 19:17 | disposition home or self-care (01) ==
LOC: ER 14:50
DX: M25.511 Pain in right shoulder (principal); M54.9 Dorsalgia, unspecified; F17.210 Nicotine dependence, cigarettes, uncomplicated
CPT/HCPCS: 96365; 93005; 85025; 80048; 36415; 83735; 85610; 80076; 84484; 83880; 71275; 71045; 73030; 96375; 99285; Q9967; J2405; J2800; J7040; J1885